=== PATIENT | male | born 1995 | race Caucasian/White ===

== ENCOUNTER 2018-01-04 06:27 | Day surgery (SDC) | payer OTHER, MEDICAID ==
[2018-01-04] MEDS ORDERED: FENTAnyl 50 MCG/ML VIAL (06:28)
[2018-01-04] MEDS ORDERED: ROCURONIUM 50 MG INJ (06:28)
[2018-01-04] MEDS ORDERED: LIDOCAINE 2% (SDV) 5 ML INJ (06:28)
[2018-01-04] MEDS ORDERED: NEOSTIGMINE 3 MG/3 ML SYRINGE (06:28)
[2018-01-04] MEDS ORDERED: GLYCOPYRROLATE 0.4 MG INJ ×2 (06:28→12:30)
[2018-01-04] MEDS ORDERED: MIDAZOLAM 1 MG/ML 2 ML INJ (06:28)
[2018-01-04] MEDS ORDERED: PROPOFOL 20 ML (06:28)
[2018-01-04] MEDS ORDERED: ONDANSETRON 4 MG INJ (06:29)
[2018-01-04] MEDS ORDERED: DEXAMETHASONE 4 MG/ML 1 ML INJ (06:29)
[2018-01-04] MEDS ORDERED: MEPERIDINE 25 MG INJ IV (06:30)
[2018-01-04] MEDS ORDERED: EPHEDrine SULFATE 50 MG/5 ML SYG IV (06:30)
[2018-01-04] MEDS ORDERED: morphine (1 MG/ML) 10ML SYRINGE IV ×3 (06:30)
[2018-01-04] MEDS ORDERED: ROPIVACAINE 0.5 % 30 ML VIAL (06:30)
[2018-01-04] MEDS ORDERED: FENTAnyl 50 MCG/ML VIAL IV (06:30)
[2018-01-04] MEDS ORDERED: MIDAZOLAM 1 MG/ML 2 ML INJ IV (06:30)
[2018-01-04] MEDS ORDERED: DIPHENHYDRAMINE 50 MG INJ IV (06:30)
[2018-01-04] MEDS ORDERED: ONDANSETRON 4 MG INJ IV (06:30)
[2018-01-04] MEDS ORDERED: HYDROmorphONE 1 MG/5 ML IV SYRINGE IV ×2 (06:30)
[2018-01-04] MEDS ORDERED: LABETALOL HCL 20MG INJ IV (06:30)
[2018-01-04] MEDS ORDERED: ATROPINE 1 MG/10 ML SYRINGE IV (06:30)
[2018-01-04] MEDS ORDERED: hydrALAzine 20 MG INJ IV (06:30)
[2018-01-04] MEDS ORDERED: OXYCODONE/ACETAMINOPHEN (5/325) TAB PO ×2 (06:30)
[2018-01-04] MEDS: BUPIVACAINE 0.5% (SDV) 30 ML INJ (07:22)
[2018-01-04] MEDS: POLYMYXIN/BACITRACIN 1L IRRIG (07:23)
[2018-01-04] MEDS ORDERED: ATROPINE 1 MG/10 ML SYRINGE (08:21)
[2018-01-04] MEDS: FENTAnyl 50 MCG/ML VIAL IV ×2 (10:10→10:35)
[2018-01-04] MEDS: HYDROmorphONE 1 MG/5 ML IV SYRINGE IV ×2 (10:10→10:36)
== END 2018-01-04 11:20 | disposition home or self-care (01) ==
LOC: SDS 06:27
DX: S62.032K Displaced fracture of proximal third of navicular [scaphoid] bone of left wrist, subsequent encounter for fracture with nonunion (principal); X58.XXXD Exposure to other specified factors, subsequent encounter
CPT/HCPCS: 26546; 73110-LT